=== PATIENT | female | born 2000 | race African-American/Black ===

== ENCOUNTER 2023-06-17 23:58 | Emergency (ER) | payer SELFPAY ==
[2023-06-18] MEDS ORDERED: Lidocaine 1% (PF) 30 ML VIAL ONE (01:16)
[2023-06-18] MEDS ORDERED: Sulfameth/Trimethoprim DS 800-160mg TAB ONE (01:56)
[2023-06-18] MEDS ORDERED: Bacitracin 1 PK ONE (01:56)
== END 2023-06-18 02:00 | disposition home or self-care (01) ==
LOC: CSHERS 23:58
DX: L03.012 Cellulitis of left finger (principal)
CPT/HCPCS: 10060; J2001